=== PATIENT | female | born 1940 | race Two or more races ===

== ENCOUNTER 2021-06-08 12:15 | Inpatient (IN) | payer OTHER ==
[~2021-06-08] VITALS: Ht 152.4 cm; Wt 84.4 kg
[2021-06-08] MEDS ORDERED: LEVO-T100 MCG PO (15:08)
[2021-06-08] MEDS ORDERED: COZAAR50 MG PO (15:08)
[2021-06-08] MEDS ORDERED: INDAPAMIDE2.5 MG PO (15:08)
[2021-06-08] MEDS ORDERED: ZOCOR40 MG PO (15:08)
[2021-06-08] MEDS ORDERED: PEPCID40 MG PO (15:09)
[2021-06-08] MEDS ORDERED: MULTI VITAMIN1 EACH PO (15:09)
[2021-06-08] MEDS ORDERED: ZEGERID 40 MG1 EACH PO (15:09)
[2021-06-10] MEDS ORDERED: ADVIL DUAL ACT1 EACH (09:36)
[2021-06-10] MEDS ORDERED: OMEPRAZOLE40 MG (09:37)
[2021-06-10] MEDS ORDERED: EMERGEN-C 1,01000 MG (09:37)
== END 2021-06-13 12:13 | disposition home or self-care (01) | DRG 735 ==
LOC: SURH 06-10 07:00 → O/R 06-10 08:31 → OB/GYN 06-10 08:31 → SURH 06-10 12:15 → OB/GYN 06-10 15:23 → SURG-SUITE 06-10 17:52
PROVIDERS: ADMIT Specialist; ATTEND Specialist
PROC: 07TD4ZZ Resection of Aortic Lymphatic, Percutaneous Endoscopic Approach (ICD-10-PCS; 2021-06-10)
PROC: 0UT98ZZ Resection of Uterus, Via Natural or Artificial Opening Endoscopic (ICD-10-PCS; 2021-06-10)
PROC: 0UT78ZZ Resection of Bilateral Fallopian Tubes, Via Natural or Artificial Opening Endoscopic (ICD-10-PCS; 2021-06-10)
PROC: 0UT28ZZ Resection of Bilateral Ovaries, Via Natural or Artificial Opening Endoscopic (ICD-10-PCS; 2021-06-10)
PROC: 3E1M48Z Irrigation of Peritoneal Cavity using Irrigating Substance, Percutaneous Endoscopic Approach (ICD-10-PCS; 2021-06-10)
PROC: 07TC4ZZ Resection of Pelvis Lymphatic, Percutaneous Endoscopic Approach (ICD-10-PCS; principal; 2021-06-10 07:00)
DX: C54.1 Malignant neoplasm of endometrium (principal); Z20.822 Contact with and (suspected) exposure to COVID-19